=== PATIENT | female | born 1970 | race Two or more races ===

== ENCOUNTER 2020-05-27 20:20 | Emergency (ER) | payer OTHER ==
[~2020-05-27] VITALS: Ht 160 cm; Wt 90.7 kg
== END 2020-05-27 22:16 | disposition home or self-care (01) ==
LOC: ER 20:20
DX: S90.32XA Contusion of left foot, initial encounter (principal); W18.09XA Striking against other object with subsequent fall, initial encounter; Y93.89 Activity, other specified; Y92.098 Other place in other non-institutional residence as the place of occurrence of the external cause; Y99.8 Other external cause status

== ENCOUNTER → 2020-08-23 | Emergency (ER) | payer OTHER ==
[~2020-08-23] VITALS: Ht 162.6 cm; Wt 74.8 kg
[~2020-08-23] MED LIST: COZAAR25 MG
== END | disposition left against medical advice (07) ==
LOC: ER 19:57
DX: I10 Essential (primary) hypertension (principal)